=== PATIENT | male | born 1970 | race Caucasian/White ===

== ENCOUNTER 2016-11-16 16:00 | Emergency (ER) | payer SELFPAY ==
[~2016-11-16] VITALS: Ht 170.2 cm; Wt 86.0 kg
[2016-11-16] MEDS ORDERED: KETOROLAC 30MG/ML VIAL IM ONE (16:30)
[2016-11-16] MEDS ORDERED: HYDROCODONE/ACETAMINOPHEN 5/325MG TABLET PO ONE (16:30)
[2016-11-16] MEDS ORDERED: TETANUS, DIPHTHERIA, PERTUSSIS VAC/PF 0.5ML (>7YR OLD) IM ONE (16:30)
[2016-11-16] MEDS ORDERED: BACITRACIN ZINC OINT UDPKT TOP ONE (16:30)
[2016-11-16] MEDS ORDERED: LIDOCAINE HCL 1% 20ML VIAL (Pyxis) INJ MC ONE (16:30)
[2016-11-16 18:41] VITALS: BP 134/90
== END 2016-11-16 19:26 | disposition home or self-care (01) ==
LOC: ER 16:00
DX: S81.011A Laceration without foreign body, right knee, initial encounter (principal); X78.8XXA Intentional self-harm by other sharp object, initial encounter; Y93.89 Activity, other specified; Y92.89 Other specified places as the place of occurrence of the external cause; Y99.8 Other external cause status
CPT/HCPCS: 12002; 73562; 90471; 90715; 96372; 99284; A4217; J1885; J3490; Z7610

== ENCOUNTER 2016-11-28 17:03 | Emergency (ER) | payer SELFPAY ==
[~2016-11-28] VITALS: Ht 167.6 cm; Wt 87.0 kg
[2016-11-28 17:27] VITALS: BP 126/94
== END 2016-11-28 21:30 | disposition left against medical advice (07) ==
LOC: ER 21:15
DX: Z48.02 Encounter for removal of sutures (principal); Z53.21 Procedure and treatment not carried out due to patient leaving prior to being seen by health care provider